=== PATIENT | male | born 2000 | race African-American/Black ===

== ENCOUNTER 2022-01-15 11:30 | Emergency (ER) | payer MEDICAID, SELFPAY ==
[2022-01-15 11:58] VITALS: BP 141/80; PULSE 96; RESP 20; TEMP 39.4; O2SAT 98; BMI 34.4
[2022-01-15] MEDS: Acetaminophen 325 MG TABLET 975 MG PO (12:05)
[2022-01-15 12:29] LABS: COVID-19 Test Negative (Negative)
[2022-01-15 12:30] LABS: IDNOW Serial# 16C4AD1C; Influenza A Positive (Negative); Influenza B2 Negative (Negative)
--- NOTE | 2022-01-15 13:15 | ED.URI ---
HPI - URI/Sore Throat General Chief Complaint: Upper Respiratory Symptoms Stated Complaint: fever Time Seen by Provider: 01/15/22 13:15 Source: patient Mode of arrival: ambulatory Limitations: no limitations History of Present Illness HPI Narrative: 21 y/o male presenting to the ER with cough and body aches for the last 3 days. He feels unwell. He feels hot. He has been taking Tylenol for fevers. He also reports left sided abdominal pain that comes and goes for the last several weeks. No vomiting or diarrhea but he has been nauseous for the last few days. He reports eating and drinking normally. He reports burning from his abdomen up into his chest when he eats, this has been present for several months. No known sick contacts. He has a at home and is worried about them becoming ill as well. MD elicited complaint: fever, cough and other (body aches) Onset (ago): day(s) Consistency: constant Severity: moderate Description of mucous: clear Able to tolerate fluids by mouth: Yes Exacerbating factors: nothing Relieving factors: nothing Associated symptoms: fever, chills, myalgias, diaphoresis, nasal congestion, cough, abdominal pain and nausea Treatments prior to arrival: none Related Data Previous Rx's Medication Instructions Recorded ibuprofen 800 mg tablet 800 mg PO Q8H PRN #10 tab 01/15/22 Allergies Allergy/AdvReac Type Severity Reaction Status Date / Time No Known Allergies Allergy Verified 01/15/22 11:56 [No Known Allergies*] Review of Systems Review of Systems: Constitutional: + Fever, No Chills ENT/Mouth: No sore throat, No Rhinorrhea, No Swallowing Difficulty Eyes: No Eye Pain, No Swelling, No Redness Cardiovascular: No Chest Pain, No SOB, No Orthopnea, No Edema Respiratory: + Cough, No Sputum, No Wheezing, No dyspnea Gastrointestinal: + Nausea, No Vomiting, No Diarrhea, + abdominal Pain, No Hematochezia, No Melena Genitourinary: No Dysuria, No Urinary Frequency, No Hematuria Musculoskeletal: + joint pain, + Myalgias Skin: No Skin Lesions, No rash Neuro: +Weakness, No Numbness, No Dizziness, + Headache Psych: + Anxiety/Panic, No Depression Heme/Lymph: No Bruising, No Lymphadenopathy Endocrine: No Polyuria, No Polydipsia [facility] Past Medical History Medical History (Updated 01/15/22 @ 13:18 by ASHER Echeverria) No known health problems Social History Social History Advance Directives: No Advance Directives Information Provided: Yes Physical Exam Vital Signs: Vital Signs: Last Vital Signs Temp 99.6 F 01/15/22 14:13 Pulse 75 01/15/22 14:13 Resp 14 01/15/22 14:13 BP 140/66 H 01/15/22 14:13 Pulse Ox 99 01/15/22 14:13 BMI result Body Mass Index 34.4 Appearance: Alert. Oriented X3. No acute distress. Eyes: Pupils equal, round and reactive to light. ENT: Pharynx normal. Neck: Normal inspection. Neck supple. CVS: Normal heart rate and rhythm. Pulses normal. Respiratory: No respiratory distress. Breath sounds normal. Abdomen: Soft and nontender. No palpable masses. No rebound or guarding.+BS x4 Skin: Skin warm and dry. Normal skin color. Normal skin turgor. No rashes. Extremities: No lower extremity edema. Neuro: Oriented X 3. No motor deficit. No sensory deficit. Course Course Course Narrative: 21-year-old otherwise healthy male presents to the ER with 3 days of body aches, dry cough, not feeling well. On arrival to the ER he is febrile to 102.9. He is not tachycardic, saturating 98% on room air. He is nontoxic appearing. His viral swabs are positive for influenza A. He was given 1g of Tylenol with improvement in his fever. At this time is stable for discharge home with supportive care. MDM - URI/Sore Throat Lab Data Result diagrams: 01/15/22 14:11 01/15/22 14:11 Labs: Lab Results 01/15/22 01/15/22 01/15/22 Range/Units 12:08 12:08 14:11 WBC 6.1 (4.8-10.8) X10*3/uL RBC 5.23 (4.60-5.80) X10*6/uL Hgb 15.5 (14.0-18.0) g/dl Hct 45.8 (42.0-52.0) % MCV 87.6 (80.0-98.0) fL MCH 29.6 (27.0-33.0) pg MCHC 33.8 (31.0-36.0) g/dl RDW 11.6 (11.0-16.0) % Plt Count 177 (160-400) X10*3/uL MPV 11.1 (9.4-12.4) fL Immature Gran % (Auto) 1.1 H (0.0-0.4) % Neut % (Auto) 74.7 H (45-73) % Lymph % (Auto) 9.5 L (20-40) % [place] % (Auto) 14.4 H (2-11) % Eos % (Auto) 0.0 (0-4) % Baso % (Auto) 0.3 (0-2) % Lymph # (Auto) 0.6 L (1.2-4.9) X10*3/uL [place] # (Auto) 0.9 (0.1-1.2) X10*3/uL Eos # (Auto) 0.0 (0.0-0.4) X10*3/uL Baso # (Auto) 0.0 (0.0-0.2) X10*3/uL Abs Immat Gran (auto) 0.07 H (0.00-0.03) X10*3/uL Absolute Neuts (auto) 4.6 (2.0-8.3) x10*3/uL Absolute Nucleated RBC 0.000 (0.0-0.012) X10*3/uL Nucleated RBC % (auto) 0.0 (0.0-0.2) /100WBC Sodium (135-145) mmol/L Potassium (3.3-5.1) mmol/L Chloride (96-108) mmol/L Carbon Dioxide (22-29) mmol/L Anion Gap (12-20) BUN (9-16) mg/dL Creatinine (0.5-1.4) mg/dL Estim Creat Clear Calc Estimated GFR Random Glucose (60-115) mg/dL Calcium (8.4-10.2) mg/dL Magnesium (1.6-2.6) mg/dL Total Bilirubin (0.0-1.0) mg/dL Direct Bilirubin (0.0-0.5) mg/dL AST (5-37) U/L ALT (0-40) U/L Alkaline Phosphatase (39-117) U/L Total Protein (6.5-8.0) g/dL Albumin (3.5-5.0) g/dL COVID-19 ([place]) Negative (Negative) COVID-19 Clin Com See Note Influenza Type A ([place]) Positive A (Negative) Influenza Type B ([place]) Negative (Negative) Influenza A & B Note See Note 01/15/22 Range/Units 14:11 WBC (4.8-10.8) X10*3/uL RBC (4.60-5.80) X10*6/uL Hgb (14.0-18.0) g/dl Hct (42.0-52.0) % MCV (80.0-98.0) fL MCH (27.0-33.0) pg MCHC (31.0-36.0) g/dl RDW (11.0-16.0) % Plt Count (160-400) X10*3/uL MPV (9.4-12.4) fL Immature Gran % (Auto) (0.0-0.4) % Neut % (Auto) (45-73) % Lymph % (Auto) (20-40) % [place] % (Auto) (2-11) % Eos % (Auto) (0-4) % Baso % (Auto) (0-2) % Lymph # (Auto) (1.2-4.9) X10*3/uL [place] # (Auto) (0.1-1.2) X10*3/uL Eos # (Auto) (0.0-0.4) X10*3/uL Baso # (Auto) (0.0-0.2) X10*3/uL Abs Immat Gran (auto) (0.00-0.03) X10*3/uL Absolute Neuts (auto) (2.0-8.3) x10*3/uL Absolute Nucleated RBC (0.0-0.012) X10*3/uL Nucleated RBC % (auto) (0.0-0.2) /100WBC Sodium 135 (135-145) mmol/L Potassium 3.8 (3.3-5.1) mmol/L Chloride 102 (96-108) mmol/L Carbon Dioxide 24 (22-29) mmol/L Anion Gap 13 (12-20) BUN 7 L (9-16) mg/dL Creatinine 1.04 (0.5-1.4) mg/dL Estim Creat Clear Calc 157.0 Estimated GFR > 60 Random Glucose 94 (60-115) mg/dL Calcium 9.3 (8.4-10.2) mg/dL Magnesium 2.0 (1.6-2.6) mg/dL Total Bilirubin 0.8 (0.0-1.0) mg/dL Direct Bilirubin 0.3 (0.0-0.5) mg/dL AST 38 H (5-37) U/L ALT 56 H (0-40) U/L Alkaline Phosphatase 91 (39-117) U/L Total Protein 7.7 (6.5-8.0) g/dL Albumin 4.5 (3.5-5.0) g/dL COVID-19 ([facility]) (Negative) COVID-19 Clin Com Influenza Type A ([place]) (Negative) Influenza Type B ([place]) (Negative) Influenza A & B Note Critical Care Time Critical Care Time Critical Care Time: No Discharge Plan Discharge Clinical Impression: Influenza Patient Disposition: Home, Self-Care Instructions: Influenza (DC) Additional Instructions: You are positive for influenza Treatment is supportive care - rest, drink plenty of fluids, and take over the counter cold and flu medications as needed for your symptoms Do not go out in public while you are feeling unwell Follow up with your doctor as needed If you develop new or worsening symptoms call 911 or come back to the ER for further evaluation. Prescriptions: New ibuprofen 800 mg tablet 800 mg PO Q8H PRN (Reason: fever or pain) Qty: 10 0RF Stand Alone Forms: Work/School Release
[2022-01-15] MEDS: Ibuprofen 600 MG TABLET PO (13:56)
[2022-01-15 14:13] VITALS: BP 140/66; PULSE 75; RESP 14; TEMP 37.6; O2SAT 99
[2022-01-15 14:16] LABS: MANUAL DIFF FLAG NO
[2022-01-15 14:36] LABS: Alanine Aminotransferase 56 U/L (0-40); Albumin Level 4.5 g/dL (3.5-5.0); Alkaline Phosphatase 91 U/L (39-117); Anion Gap 13 (12-20); Aspartate Amino Transferase 38 U/L (5-37); Bilirubin Direct 0.3 mg/dL (0.0-0.5); Bilirubin Total 0.8 mg/dL (0.0-1.0); Blood Urea Nitrogen 7 mg/dL (9-16); Calcium 9.3 mg/dL (8.4-10.2); Carbon Dioxide 24 mmol/L (22-29); Chloride 102 mmol/L (96-108); Estimated Glomerular Filt Rate > 60; Glucose Random 94 mg/dL (60-115); Potassium 3.8 mmol/L (3.3-5.1); Sodium 135 mmol/L (135-145); Total Protein 7.7 g/dL (6.5-8.0)
[2022-01-15 14:41] LABS: Basophils Percent Auto 0.3 % (0-2); Hematocrit 45.8 % (42.0-52.0); Hemoglobin 15.5 g/dl (14.0-18.0); Imm Gran Abs Auto 0.07 X10*3/uL (0.00-0.03); Imm Gran Pct Auto 1.1 % (0.0-0.4); Lymphocytes Absolute Auto 0.6 X10*3/uL (1.2-4.9); Lymphocytes Percent Auto 9.5 % (20-40); Mean Corpuscular HGB Conc 33.8 g/dl (31.0-36.0); Mean Corpuscular Hemoglobin 29.6 pg (27.0-33.0); Mean Corpuscular Volume 87.6 fL (80.0-98.0); Mean Platelet Volume 11.1 fL (9.4-12.4); Monocytes Absolute Auto 0.9 X10*3/uL (0.1-1.2); Monocytes Percent Auto 14.4 % (2-11); Neutrophils Absolute Auto 4.6 x10*3/uL (2.0-8.3); Neutrophils Percent Auto 74.7 % (45-73); Platelet Count 177 X10*3/uL (160-400); Red Blood Count 5.23 X10*6/uL (4.60-5.80); Red Cell Distribution Width 11.6 % (11.0-16.0); White Blood Count 6.1 X10*3/uL (4.8-10.8)
== END 2022-01-15 15:39 | disposition home or self-care (01) ==
PROVIDERS: Physician Assistant; Emergency Provider Emergency Medicine
DX: J10.1 Influenza due to other identified influenza virus with other respiratory manifestations (principal); Z20.822 Contact with and (suspected) exposure to COVID-19
CPT/HCPCS: 36415; 80048; 80076; 83735; 85025; 87502; 87635; 99283; 99284

== ENCOUNTER 2025-09-11 20:34 | Emergency (ER) | payer SELFPAY ==
[2025-09-11 21:03] VITALS: BP 150/74; PULSE 66; RESP 16; TEMP 36.7; O2SAT 98; BMI 28.5
[2025-09-11 21:30] LABS: MANUAL DIFF FLAG NO
[2025-09-11 21:33] LABS: Hematocrit 48.8 % (42.0-52.0); Hemoglobin 17.3 g/dl (14.0-18.0); Imm Gran Abs Auto 0.01 X10*3/uL (0.00-0.03); Imm Gran Pct Auto 0.1 % (0.0-0.4); Lymphocytes Absolute Auto 2.6 X10*3/uL (1.2-4.9); Mean Corpuscular HGB Conc 35.5 g/dl (31.0-36.0); Mean Corpuscular Hemoglobin 30.8 pg (27.0-33.0); Mean Corpuscular Volume 87.0 fL (80.0-98.0); NRBC Abs Auto 0.000 X10*3/uL (0.0-0.012); NRBC Pct Auto 0.0 /100WBC (0.0-0.2); Platelet Count 272 X10*3/uL (160-400); Red Blood Count 5.61 X10*6/uL (4.60-5.80); White Blood Count 7.9 X10*3/uL (4.8-10.8)
[2025-09-11 21:45] LABS: Appearance Urine Clear; Glucose Urine UA Negative (Negative); PH 6.0 (5.0-9.0); Specific Gravity - Urine >= 1.030 (1.005-1.025); UMIC TRIGGER UACC YES
[2025-09-11 21:45] LABS: Alanine Aminotransferase 22 U/L (0-40); Albumin Level 5.5 g/dL (3.5-5.0); Alkaline Phosphatase 60 U/L (39-117); Anion Gap 11 (12-20); Aspartate Amino Transferase 28 U/L (5-37); Blood Urea Nitrogen 13 mg/dL (9-16); Calcium 10.3 mg/dL (8.4-10.2); Carbon Dioxide 29 mmol/L (22-29); Chloride 105 mmol/L (96-108); Creatinine Clr Calc Pharmacy 132.4; Estimated Glomerular Filt Rate > 60; Potassium 4.0 mmol/L (3.3-5.1); Sodium 141 mmol/L (135-145); Total Protein 8.4 g/dL (6.5-8.0)
--- NOTE | 2025-09-11 23:48 | ED.GENADULT ---
HPI - General Adult General Chief complaint: Abdominal Pain Stated complaint: sharp stomach pains vomiting onset 48hrs Time Seen by Provider: 09/11/25 23:48 Source: patient Limitations: no limitations History of Present Illness HPI narrative: 24-year-old male presents for evaluation of a 2 day history of nausea and vomiting. Patient thinks he may had eaten some food that was no good. He denies any sick contacts. He has tried Pedialyte as well as Pepto-Bismol without any relief. Patient states he had some bilious vomit today and therefore presents to the emergency department. He denies any abdominal pain at this time. He is urinating without difficulty. No diarrhea. He does not take any medications regularly. He occasionally smokes tobacco and marijuana. No alcohol use. Related Data Previous Rx's ?Medication ?Instructions ?Recorded ibuprofen 800 mg tablet 800 mg PO Q8H PRN fever or pain 01/15/22 #10 tabs ondansetron 4 mg disintegrating 4 mg PO Q8H PRN nausea and 09/12/25 tablet vomiting #12 tabs Allergies Allergy/AdvReac Type Severity Reaction Status Date / Time No Known Allergies (No Known Allergy Verified 09/11/25 21:04 Allergies*) Review of Systems Constitutional: Constitutional: Reports body ache(s) and Reports chills Gastrointestinal: Gastrointestinal: Reports abdominal pain, Denies constipation, Reports nausea and Reports vomiting PMFSH Past Medical History Medical History (Updated 09/12/25 @ 00:02 by ASHER [place]) No known health problems Social History Social History Smoked in Last 30 Days: No Use of substances other than those prescribed or required for medical reasons: No Advance Directives: No Advance Directives Information Provided: Yes Physical Exam ED Vital Signs: Vital Signs - 24 hr 09/11/25 21:03 Temperature 98.1 F Pulse Rate 66 Respiratory Rate 16 Blood Pressure 150/74 H Pulse Oximetry 98 Oxygen Delivery Method Room Air BMI result Body Mass Index 28.5 Const General: alert and awake Resp Other: Lung sounds clear throughout Cardio Rate: regular rate Rhythm: regular rhythm GI Other: abdomen is soft, mild epigastric tenderness. No peritoneal signs. No lower abdominal tenderness. Course Course Course Narrative: September 12, 1:00 a.m. patient reports significant improvement in symptoms. Denies any nausea. He is requesting discharge home. Reviewed all discharge instructions with the patient and visitor at the bedside. Patient expresses understanding of all discharge instructions and has no further questions at this time. Medications Administered Discontinued Medications Generic Name Dose Route Start Last Admin Trade Name Sarah PRN Reason Stop Dose Admin Al Hydroxide/Mg Hydroxide 30 ml 09/12/25 00:17 09/12/25 00:22 Magnesium Hydrox/Alum Hydrox 30 Ml Oral.Susp PO 09/12/25 00:18 30 ml ONCE ONE Administration Sodium Chloride 1,000 mls @ 999 mls/hr 09/11/25 23:45 09/12/25 00:01 Ns IV 09/12/25 00:45 999 mls/hr .Q1H1M CRISTOBAL Administration Lidocaine HCl 15 ml 09/12/25 00:17 09/12/25 00:22 Lidocaine Hcl Viscous 2 % 15 Ml Solution MUCOUS MEM 09/12/25 00:18 15 ml ONCE ONE Administration Ondansetron HCl 4 mg 09/11/25 23:53 09/12/25 00:01 Ondansetron Hcl 4 Mg/2 Ml Vial IVPUSH 09/11/25 23:54 4 mg ONCE ONE Administration Medical Decision Making Medical Decision Making [facility] Narrative: 24-year-old male with a 2 day history of epigastric pain nausea and vomiting. Mild epigastric tenderness on exam but otherwise reassuring. Labs are within normal ranges however urinalysis demonstrating evidence of dehydration. Patient with IV fluids, antiemetics. Differential Diagnosis Differential Diagnoses: The differential diagnosis associated with the presentation includes Viral syndrome Dehydration Pancreatitis Dyspepsia Lab Data [facility] Lab Attestation statement: I reviewed the patient's lab results. 09/11/25 21:24 09/11/25 21:24 Labs: Lab Results 09/11/25 09/11/25 Range/Units 21:24 21:31 WBC 7.9 (4.8-10.8) X10*3/uL RBC 5.61 (4.60-5.80) X10*6/uL Hgb 17.3 (14.0-18.0) g/dl Hct 48.8 (42.0-52.0) % MCV 87.0 (80.0-98.0) fL MCH 30.8 (27.0-33.0) pg MCHC 35.5 (31.0-36.0) g/dl RDW 11.4 (11.0-16.0) % Plt Count 272 D (160-400) X10*3/uL MPV 10.2 (9.4-12.4) fL Immature Gran % (Auto) 0.1 (0.0-0.4) % Neut % (Auto) 57.0 (45-73) % Lymph % (Auto) 33.0 (20-40) % [place] % (Auto) 9.1 (2-11) % Eos % (Auto) 0.4 (0-4) % Baso % (Auto) 0.4 (0-2) % Lymph # (Auto) 2.6 (1.2-4.9) X10*3/uL [place] # (Auto) 0.7 (0.1-1.2) X10*3/uL Eos # (Auto) 0.0 (0.0-0.4) X10*3/uL Baso # (Auto) 0.0 (0.0-0.2) X10*3/uL Abs Immat Gran (auto) 0.01 (0.00-0.03) X10*3/uL Absolute Neuts (auto) 4.5 (2.0-8.3) x10*3/uL Absolute Nucleated RBC 0.000 (0.0-0.012) X10*3/uL Nucleated RBC % (auto) 0.0 (0.0-0.2) /100WBC Sodium 141 (135-145) mmol/L Potassium 4.0 (3.3-5.1) mmol/L Chloride 105 (96-108) mmol/L Carbon Dioxide 29 (22-29) mmol/L Anion Gap 11 L (12-20) BUN 13 (9-16) mg/dL Creatinine 1.08 (0.5-1.4) mg/dL Estim Creat Clear Calc 132.4 Estimated GFR > 60 Random Glucose 85 (60-115) mg/dL Calcium 10.3 H D (8.4-10.2) mg/dL Total Bilirubin 1.2 H (0.0-1.0) mg/dL AST 28 (5-37) U/L ALT 22 (0-40) U/L Alkaline Phosphatase 60 (39-117) U/L Total Protein 8.4 H (6.5-8.0) g/dL Albumin 5.5 H (3.5-5.0) g/dL Urine Color Dark Yellow Urine Appearance Clear Urine pH 6.0 (5.0-9.0) Ur Specific [place] >= 1.030 H (1.005-1.025) Urine Protein 30 (1+) H (Neg-Trace) mg/dL Urine Glucose (UA) Negative (Negative) mg/dL Urine Ketones 40 (Negative) mg/dL Urine Blood Negative (Negative) Urine Nitrite Negative (Negative) Ur Leukocyte Esterase Negative (Negative) Urine RBC 0-2 (0-2) /HPF Urine WBC 0-5 (0-5) /HPF Ur Squamous Epith Cells 0-2 (0-2) /HPF Urine Bacteria None Seen (None Seen) Hyaline Casts 0-2 (0-2) /LPF Discharge Plan Discharge Clinical Impression: Nausea and vomiting Qualifiers: Vomiting type: unspecified Qualified Code(s): R11.2 - Nausea with vomiting, unspecified Patient Disposition: Home, Self-Care Instructions: Acute Nausea and Vomiting (ED), Acute Abdominal Pain (ED) Additional Instructions: Clear liquids. [place] diet. Gradually advance. Bananas. White rice. Applesauce, plain toast. Zofran as directed for nausea. Follow-up with your primary care provider. Call this week to schedule a follow-up appointment. Return to the emergency department if you have any worsening of symptoms, or any concerns. Get well soon! Prescriptions: New ondansetron 4 mg tablet,disintegrating 4 mg PO Q8H PRN (Reason: nausea and vomiting) Qty: 12 0RF No Action ibuprofen 800 mg tablet 800 mg PO Q8H PRN (Reason: fever or pain) Qty: 10 0RF Stand Alone Forms: Work/School Release Print Language: Macedonian
[2025-09-12] MEDS: Lidocaine HCl Viscous 2 % 15 ML SOLUTION MUCOUS MEM (00:22)
[2025-09-12] MEDS: Magnesium Hydrox/Alum Hydrox 30 ML ORAL.SUSP PO (00:22)
--- NOTE | 2025-09-12 00:24 | PC.NURSE ---
pt medicated per NOV. Tolerated Malox and lidocaine PO mix well.
[2025-09-12 01:14] VITALS: BP 148/70; PULSE 72; RESP 18; TEMP 36.6; O2SAT 98
== END 2025-09-12 01:17 | disposition home or self-care (01) ==
PROVIDERS: Emergency Provider Emergency Medicine
DX: R11.2 Nausea with vomiting, unspecified (principal); R10.13 Epigastric pain
CPT/HCPCS: 36415; 80053; 81001; 85025; 96361; 96374; 99284; J2405